=== PATIENT | female | born 1990 | race Two or more races ===

== ENCOUNTER → 2023-02-04 | Emergency (ER) | payer MEDICAID, OTHER ==
[~2023-02-04] VITALS: Ht 172.7 cm; Wt 90.0 kg
[~2023-02-04] MED LIST: IBUPROFEN 800 MG TAB PO ONE
[2023-02-04 21:15] VITALS: BP 142/77
== END | disposition left against medical advice (07) ==
LOC: ER 21:17
DX: M25.521 Pain in right elbow (principal); M25.531 Pain in right wrist; Z53.21 Procedure and treatment not carried out due to patient leaving prior to being seen by health care provider
CPT/HCPCS: 73080; 73110